=== PATIENT | female | born 1955 | race African-American/Black ===

== ENCOUNTER 2017-04-05 17:42 | Emergency (ER) | payer BC ==
[2014-03-02 08:28] VITALS: BMI 22.6
[2017-04-05 18:29] LABS: BASOPHILS 0.2 % (0-2); EOSINOPHILS 1.1 % (0-7); HEMATOCRIT 43.8 % (36.0-48.0); HEMOGLOBIN 14.1 g/dL (12-16); IMMATURE GRANULOCYTES 0.2 % (0-5); LYMPHOCYTES 37.7 % (15-50); MCH 31.5 pg (26.0-34.0); MCHC 32.2 g/dL (31.0-37.0); MEAN PLATELET VOLUME 10.3 fL (7.4-10.4); MONOCYTES 9.5 % (2-11); NEUTROPHILS 51.3 % (40-80); PLATELET COUNT 245 10x3/uL (130-400); RBC 4.47 10x6/uL (4.00-5.40); RDW 11.7 % (11.5-14.5); WBC 8.2 10x3/uL (4.8-10.8)
[2017-04-05 18:43] LABS: ALBUMIN 3.9 g/dL (3.4-5.0); ALKALINE PHOSPHATASE 105 U/L (46-116); ALT (SGPT) 32 U/L (10-68); BILIRUBIN - TOTAL 0.18 mg/dL (0.2-1.3); CALC OSMOLALITY 292 mosm/kg (275-300); CALCIUM 9.9 mg/dL (8.5-10.1); CARBON DIOXIDE 29.1 mmol/L (21.0-32.0); CHLORIDE - SERUM 106 mmol/L (98-107); CREATININE - SERUM 0.9 mg/dL (0.6-1.3); GLUCOSE 90 mg/dL (74-106); POTASSIUM - SERUM 3.9 mmol/L (3.5-5.1); PROTEIN - SERUM 6.8 g/dL (6.4-8.2); SODIUM 146 mmol/L (136-145); UREA NITROGEN 18 mg/dL (7-18); eGFR NON AFRICAN AMERICAN 68 mL/min (90-120)
[2017-04-05 18:54] LABS: AMYLASE - SERUM 55 U/L (25-115); CKMB 1.1 U/L (0.0-3.6); CREATINE KINASE 72 UL (21-215); LIPASE 150 U/L (73-393)
[2017-04-05 18:55] LABS: TROPONIN-I < 0.017 ng/mL (0.000-0.060)
== END 2017-04-05 19:32 | disposition home or self-care (01) ==
LOC: D.ER 17:42
PROVIDERS: Family Medicine
DX: R07.9 Chest pain, unspecified (principal)

== ENCOUNTER 2018-03-21 21:40 | Emergency (ER) | payer BC ==
[~2018-03-21] VITALS: Ht 149.9 cm; Wt 50.0 kg
[2018-03-21 21:47] VITALS: Ht 149.9 cm; Wt 50.0 kg
[2018-03-21 22:13] LABS: BASOPHILS 0.2 % (0-2); EOSINOPHILS 0.9 % (0-7); HEMATOCRIT 43.6 % (36.0-48.0); HEMOGLOBIN 14.6 g/dL (12-16); IMMATURE GRANULOCYTES 0.1 % (0-5); LYMPHOCYTES 30.9 % (15-50); MCH 32.4 pg (26.0-34.0); MCHC 33.5 g/dL (31.0-37.0); MCV 96.9 fL (80.0-100.0); MEAN PLATELET VOLUME 10.2 fL (7.4-10.4); MONOCYTES 6.6 % (2-11); NEUTROPHILS 61.3 % (40-80); PLATELET COUNT 256 10x3/uL (130-400); RDW 12.1 % (11.5-14.5); WBC 8.9 10x3/uL (4.8-10.8)
[2018-03-21 22:21] LABS: APTT 28.5 SECONDS (22.8-39.4); INR 0.92 (0.85-1.17)
[2018-03-21 22:27] LABS: ALBUMIN 4.3 g/dL (3.4-5.0); ALKALINE PHOSPHATASE 104 U/L (46-116); ALT (SGPT) 24 U/L (10-68); BILIRUBIN - TOTAL 0.61 mg/dL (0.2-1.3); CALC OSMOLALITY 287 mosm/kg (275-300); CALCIUM 9.7 mg/dL (8.5-10.1); CARBON DIOXIDE 26.1 mmol/L (21.0-32.0); CHLORIDE - SERUM 107 mmol/L (98-107); CREATININE - SERUM 0.8 mg/dL (0.6-1.3); GLUCOSE 104 mg/dL (74-106); PROTEIN - SERUM 7.3 g/dL (6.4-8.2); SODIUM 144 mmol/L (136-145); UREA NITROGEN 16 mg/dL (7-18); eGFR NON AFRICAN AMERICAN 77 mL/min (90-120)
[2018-03-21 22:38] LABS: CKMB 0.8 U/L (0.0-3.6); CREATINE KINASE 77 UL (21-215); MAGNESIUM - SERUM 2.2 mg/dL (1.8-2.4)
[2018-03-21 22:44] LABS: TROPONIN-I < 0.017 ng/mL (0.000-0.060)
[2018-03-21 23:12] VITALS: BP 152/89
== END 2018-03-21 23:10 | disposition home or self-care (01) ==
LOC: D.ER 21:40
PROVIDERS: Family Medicine
DX: F41.9 Anxiety disorder, unspecified (principal); R00.2 Palpitations; F41.0 Panic disorder [episodic paroxysmal anxiety]; F17.200 Nicotine dependence, unspecified, uncomplicated